=== PATIENT | male | born 1955 | race Caucasian/White ===

== ENCOUNTER 2016-06-24 22:42 | Emergency (ER) | payer OTHER ==
[~2016-06-24] VITALS: Ht 177.8 cm; Wt 80.7 kg
--- NOTE | ~2016-06-24 | EKG ---
[place], [place] ELECTROCARDIOGRAM REPORT NAME: HENRY OROPEZA UNIT #: [id number] ROOM: DOCTOR: GRISELDA MARIE MD BIRTHDATE: [birth year] DOS: 06/24/2016 TIME: 2359. FINDINGS: Sinus rhythm with rate of 82. Frequent premature atrial contractions noted. Compared to previous tracings this date, inferior ST elevation and lateral ST segment depression are much less remarkable. Abnormal electrocardiogram. GRISELDA MARIE MD CM:EKGRPT:ELECTROCARDIOGRAM REPORT [id number] GRISELDA MARIE MD
--- NOTE | ~2016-06-24 | EKG ---
[place], [place] ELECTROCARDIOGRAM REPORT [facility]: [id number] UNIT #: [id number] ROOM: DOCTOR: GRISELDA MARIE MD BIRTHDATE: [birth year] DOS: 06/24/2016 TIME: 2317. FINDINGS: Normal sinus rhythm at rate 91. Acute ST elevation in lead 3 and aVF suggests acute inferior ST elevation myocardial infarction, lateral ST segment depression consistent with ischemia as well. Abnormal electrocardiogram. GRISELDA MARIE MD CM:EKGRPT:ELECTROCARDIOGRAM REPORT [id number] GRISELDA MARIE MD
--- NOTE | ~2016-06-24 | EKG ---
[place], [place] ELECTROCARDIOGRAM REPORT [id number] UNIT #: [id number] ROOM: DOCTOR: GRISELDA MARIE MD BIRTHDATE: [birth year] DOS: 06/24/2016 TIME: 2250. FINDINGS: Normal sinus rhythm at rate of 79. ST elevation in 2, 3 and aVF consistent with acute inferior ST elevation VT. Lateral ST segment depression consistent with ischemia. Abnormal electrocardiogram. GRISELDA MARIE MD CM:EKGRPT:ELECTROCARDIOGRAM REPORT [id number] [id number] GRISELDA MARIE MD
[2016-06-24 23:10] LABS: BASO % 0.4 % (0.0-1.0); EOS # 0.3 10*3/uL (0.0-0.4); EOS % 3.7 % (1.0-4.0); HEMATOCRIT 41.9 % (42.0-52.0); HEMOGLOBIN 14.3 g/dl (14.0-18.0); LYMPH % 28.4 % (27.0-41.0); MEAN CELL VOLUME 92.9 fl (80.0-94.0); MEAN CORPUSCULAR HGB 31.7 pg (27.0-31.0); MEAN CORPUSCULAR HGB CONC 34.1 g/dl (33.0-37.0); MEAN PLATELET VOLUME 9.2 fl (9.6-12.3); MONO # 0.6 10*3/uL (0.1-1.0); MONO % 7.9 % (3.0-9.0); NEUT # 4.2 10*3/uL (2.3-7.9); NEUT % 59.3 % (47.0-73.0); PLATELET COUNT AUTOMATED 238 10*3/uL (130-400); RED BLOOD COUNT 4.51 10*6/uL (4.50-5.90); RED CELL DISTRI WIDTH 14.5 % (0-14.5)
[2016-06-24 23:22] LABS: INTERNATIONAL NORM RATIO 0.9 (2.0-3.5); PROTHROMBIN TIME 9.7 SECONDS (9.0-12.4)
[2016-06-24 23:28] LABS: ALBUMIN 3.3 gm/dl (3.1-4.5); ALKALINE PHOSPHATASE 88 U/L (45-117); BILIRUBIN, TOTAL 0.2 mg/dl (0.2-1.0); BUN 13 mg/dl (7-24); CARBON DIOXIDE 29 mmol/L (21-32); CHLORIDE 105 mmol/L (98-107); EST GLOM FILT AFRICAN AMERICAN > 60 ml/min; GLUCOSE 100 mg/dL (65-99); MAGNESIUM 2.1 mg/dL (1.5-2.1); POTASSIUM 3.6 mmol/L (3.5-5.1); SGOT/AST 57 IU/L (3-35); SGPT/ALT 54 U/L (12-78); SODIUM 139 mmol/L (136-145); TOTAL PROTEIN 6.2 gm/dL (6.4-8.2)
[2016-06-24 23:29] LABS: TROPONIN I 0.028 ng/ml (<0.045)
== END 2016-06-25 01:24 | disposition short-term general hospital (02) ==
LOC: ED 22:42
PROVIDERS: Emergency Medicine Emergency Medical Services
DX: I24.9 Acute ischemic heart disease, unspecified (principal)

== ENCOUNTER → 2016-07-29 | Outpatient (CLI) | payer OTHER | END | disposition home or self-care (01) | LOC: CARD 15:36 | DX: I25.10 Atherosclerotic heart disease of native coronary artery without angina pectoris (principal); I21.4 Non-ST elevation (NSTEMI) myocardial infarction ==

== ENCOUNTER 2017-04-03 09:26 | Inpatient (IN) | payer OTHER ==
[2017-04-03] VITALS (11 sets, daily range): BP systolic 97–124; BP diastolic 64–81
[~2017-04-03] VITALS: Ht 178 cm; Wt 77.0 kg
--- NOTE | ~2017-04-03 | O ---
[place], [place] OPERATIVE NOTE NAME: HENRY OROPEZA [facility] #: [id number] UNIT #: [id number] ROOM: [facility] DOCTOR: MANUEL AMADOR MDKANDIANTHONY BIRTHDATE: [birth year] DOS: 04/03/2017 INDICATIONS: The patient has presented with melanotic stool to the Emergency Room. The patient on aspirin and Plavix for coronary artery disease, 3 stents last June. His H and H 9 and 28 with platelet 222. His lactic acid was normal. His comprehensive metabolic panel, GFR greater than 60, bilirubin 0.1. No other pathology. PROCEDURE: Today's procedure part of investigation is panendoscopy plus biopsy and photographic series. PREMEDICATION: Versed and Diprivan. SCOPE: Olympus forward-viewing gastroscope Q10 video. REPORT: After putting the patient in left lateral position and application of lubricant to the scope, the scope was introduced. Thereafter, under direct visualization, advanced through the length of esophagus without difficulty into gastric pouch. A 3 cm hiatal hernia was noticed. Gastric pouch was entered. Diffuse gastric erosions from proximal gastric pouch to antrum was noticed. Biopsy obtained. Duodenum was entered. The anterior wall, first and second portion. Multiple duodenal ulcers were identified. None was actively bleeding; however, is scarred. Dominguez red spot in the center of both was noticed superficially in presence. Scope was withdrawn after photographic series to antrum. GI reflection reveals cardia to be benign air suctioned out. The patient was extubated, tolerated procedure well. IMPRESSION: Hiatal hernia, gastritis, gastric erosions in the diffuse pattern, multi duodenal ulcers, in the presence of aspirin and Plavix is the cause of upper gastrointestinal bleed. PLAN AND DISCUSSION: We will hold aspirin. We will hold Plavix. We are going to utilize Carafate 2 grams slurry q.i.d. 2 hours before meals and at bedtime. We are going to keep him on Protonix 40 mg IV b.i.d. We are going to keep him on ice cream, milk shake, ice jello today and from tomorrow, we can advance him to a soft diet for the dinner tomorrow and on board. H and H tomorrow morning and clinical reassessment. Etiology of bleed, aspirin and Plavix. [place], [place] OPERATIVE NOTE NAME: HENRY OROPEZA UNIT #: [id number] ROOM: [facility] DOCTOR: MARJORIE MUÑOZ,CARLI BIRTHDATE: [birth year] CARLI AMADOR MD CM:OPRECORD:OPERATIVE NOTE 1648 03 CARLI AMADOR MD 04/03/172002 interface
--- NOTE | ~2017-04-03 | CON ---
[place], [place] REPORT OF CONSULTATION NAME: HENRY OROPEZA [facility] #: [id number] UNIT #: [id number] ROOM: [facility] DOCTOR: CARLI AMADOR MD BIRTHDATE: [birth year] DOS: 04/03/2017 HISTORY OF PRESENT ILLNESS: The patient is a 61-year-old patient who presented with chief complaint of melanotic stool in the Emergency Room. The patient; however, that has been on aspirin and Plavix. No nonsteroidal anti-inflammatory. No alcohol as etiology was determined. His labs and records in the ER was reviewed by Dr. Eduin Wilkins and he called me with the patient's H and H of 9 and 28 and lactic acid, which was normal. INR was 1.0. Comprehensive metabolic panel, GFR greater than 60. Electrolytes balance. Bilirubin 0.1, lipase within normal limits. BNP of 31. Rapid flu was negative. Chest x-ray was unremarkable. PAST MEDICAL HISTORY: Associated with coronary artery disease, systemic hypertension and hyperlipidemia. PAST SURGICAL HISTORY: Left knee prosthesis and cardiac catheterization and coronary artery stents x 3 in 06/2016. FAMILY HISTORY: Noncontributory. ALLERGIES: No known medication. MEDICATIONS: Include aspirin and Effient. REVIEW OF SYSTEMS: HEENT: Denies double vision, blurred vision. RESPIRATORY: Denies shortness of breath. CARDIOVASCULAR: Denies chest pain. DIGESTIVE SYSTEM: Melanotic stool. PHYSICAL EXAMINATION: VITAL SIGNS: Stable. Blood pressure is not compromised, however, pulse is 120. HEENT: Head normocephalic, nontraumatic. Eyes: Pupils round and reactive. Mouth and buccal mucosa benign. NECK: Supple, no thyromegaly, no cervical lymphadenopathy. CHEST: Symmetric anatomy, equal expansion. No wheeze, no rhonchi. HEART: Tachycardic at about 100+, otherwise no gallop, no murmur. ABDOMEN: Soft. No hepato-organomegaly. Bowel sounds present. No pulsatile mass. EXTREMITIES: No cyanosis, no pedal edema. NEUROLOGICAL: Alert, oriented to time, place, person. LABORATORY AND DIAGNOSTIC DATA: Chemistry reviewed. Labs reviewed. H and H identified. X-rays reviewed. PLAN AND DISCUSSION IMPRESSION: Upper gastrointestinal bleed secondary to aspirin and Effient, which is used for his relatively new cardiac stents. Otherwise, systemic hypertension, otherwise, hyperlipidemia. PLAN AND DISCUSSION: Transfusion and stabilization, Endoscopic assessment and [place], [place] REPORT OF CONSULTATION NAME: HENRY OROPEZA UNIT #: [id number] ROOM: [facility] DOCTOR: CARLI AMADOR MD BIRTHDATE: [birth year] clinical reevaluate. CARLI AMADOR MD CM:CONSTR:REPORT OF CONSULTATION 1648 04/03/17 2007 interface
[2017-04-03 10:13] LABS: BASO % 0.1 % (0.0-1.0); EOS % 0.1 % (1.0-4.0); HEMATOCRIT 28.5 % (42.0-52.0); HEMOGLOBIN 9.8 g/dl (14.0-18.0); LYMPH # 1.3 10*3/uL (1.3-4.4); LYMPH % 16.9 % (27.0-41.0); MEAN CELL VOLUME 93.8 fl (80.0-94.0); MEAN CORPUSCULAR HGB 32.2 pg (27.0-31.0); MEAN CORPUSCULAR HGB CONC 34.4 g/dl (33.0-37.0); MEAN PLATELET VOLUME 9.8 fl (9.6-12.3); MONO # 0.3 10*3/uL (0.1-1.0); MONO % 3.5 % (3.0-9.0); NEUT # 5.9 10*3/uL (2.3-7.9); NEUT % 79.1 % (47.0-73.0); PLATELET COUNT AUTOMATED 222 10*3/uL (130-400); RED BLOOD COUNT 3.04 10*6/uL (4.50-5.90); RED CELL DISTRI WIDTH 13.3 % (0-14.5); WHITE BLOOD COUNT 7.4 10*3/uL (4.8-10.8)
[2017-04-03 10:24] LABS: ACT PARTIAL THROMBO TIME 23.5 SECONDS (20.8-31.5)
[2017-04-03 10:32] LABS: ALBUMIN 2.7 gm/dl (3.1-4.5); BUN 52 mg/dl (7-24); CHLORIDE 109 mmol/L (98-107); CREATININE 0.82 mg/dL (0.70-1.30); LIPASE 244 U/L (73-393); POTASSIUM 4.7 mmol/L (3.5-5.1); SGOT/AST 15 IU/L (3-35); SGPT/ALT 24 U/L (12-78); SODIUM 140 mmol/L (136-145); TOTAL PROTEIN 5.6 gm/dL (6.4-8.2)
[2017-04-03 10:33] LABS: ALKALINE PHOSPHATASE 59 U/L (45-117); TROPONIN I 0.024 ng/ml (<0.045)
[2017-04-03 12:08] LABS: BILIRUBIN NEGATIVE (NEGATIVE); BLOOD NEGATIVE (NEGATIVE); CLARITY CLEAR (CLEAR); COLOR YELLOW (YELLOW); GLUCOSE NEGATIVE (NEGATIVE); KETONE TRACE (NEGATIVE); LEUKO ESTERASE NEGATIVE (NEGATIVE); NITRITE NEGATIVE (NEGATIVE); PH 5.5 (5.0-9.0); UROBILINOGEN 0.2 E.U./dl (0.2-1.0)
[2017-04-03 12:14] LABS: MUCOUS 1+
[2017-04-03] MEDS ORDERED: EFFIENT10 M1 PO (14:06)
[2017-04-03] MEDS ORDERED: METOPROLOL25 MG PO (14:06)
[2017-04-03] MEDS ORDERED: ASPIRIN CHILDRE81 MG PO (14:07)
[2017-04-03] MEDS ORDERED: LIPITOR40 MG PO (14:07)
[2017-04-03] MEDS ORDERED: NITROSTAT0.4 MG SL (14:07)
[2017-04-04] VITALS (11 sets, daily range): BP systolic 12–112; BP diastolic 59–68
[2017-04-04 05:44] LABS: ALBUMIN 2.5 gm/dl (3.1-4.5); ALKALINE PHOSPHATASE 40 U/L (45-117); CHLORIDE 112 mmol/L (98-107); CHOLESTEROL 90 mg/dL (<200); CREATININE 0.76 mg/dL (0.70-1.30); FREE T4 1.11 ng/dl (0.76-1.46); HDL CHOLESTEROL 27 mg/dl (40-60); LDL CHOLESTEROL 25 mg/dL (9-159); PHOSPHOROUS 2.5 mg/dL (2.5-4.9); POTASSIUM 3.8 mmol/L (3.5-5.1); SGOT/AST 13 IU/L (3-35); SGPT/ALT 20 U/L (12-78); SODIUM 144 mmol/L (136-145); TOTAL PROTEIN 4.7 gm/dL (6.4-8.2); TRIGLYCERIDES 191 mg/dl (<150); VLDL CHOLESTEROL 38 mg/dL (6-40)
[2017-04-04 05:52] LABS: BUN 26 mg/dl (7-24)
[2017-04-04 06:14] LABS: BASO % 0.2 % (0.0-1.0); EOS # 0.1 10*3/uL (0.0-0.4); EOS % 1.3 % (1.0-4.0); LYMPH # 1.8 10*3/uL (1.3-4.4); LYMPH % 32.6 % (27.0-41.0); MEAN CORPUSCULAR HGB 30.9 pg (27.0-31.0); MEAN CORPUSCULAR HGB CONC 34.1 g/dl (33.0-37.0); MEAN PLATELET VOLUME 10.3 fl (9.6-12.3); MONO # 0.4 10*3/uL (0.1-1.0); MONO % 6.3 % (3.0-9.0); NEUT # 3.3 10*3/uL (2.3-7.9); NEUT % 58.9 % (47.0-73.0); PLATELET COUNT AUTOMATED 235 10*3/uL (130-400); RED BLOOD COUNT 2.46 10*6/uL (4.50-5.90); RED CELL DISTRI WIDTH 15.1 % (0-14.5); WHITE BLOOD COUNT 5.6 10*3/uL (4.8-10.8)
[2017-04-04 06:22] LABS: HEMATOCRIT 22.3 % (42.0-52.0); HEMOGLOBIN 7.6 g/dl (14.0-18.0); MEAN CELL VOLUME 90.7 fl (80.0-94.0)
[2017-04-04 07:57] LABS: VITAMIN D, 25-HYDROXY 10.6 ng/mL (30-100)
[2017-04-04 17:04] LABS: HEMATOCRIT 24.1 % (42.0-52.0); HEMOGLOBIN 8.2 g/dl (14.0-18.0)
[2017-04-05] VITALS (12 sets, daily range): BP systolic 91–109; BP diastolic 55–75
[2017-04-05 05:53] LABS: BASO % 0.5 % (0.0-1.0); EOS # 0.1 10*3/uL (0.0-0.4); EOS % 2.3 % (1.0-4.0); HEMATOCRIT 22.2 % (42.0-52.0); HEMOGLOBIN 7.8 g/dl (14.0-18.0); LYMPH # 1.5 10*3/uL (1.3-4.4); LYMPH % 27.4 % (27.0-41.0); MEAN CELL VOLUME 90.2 fl (80.0-94.0); MEAN CORPUSCULAR HGB 31.7 pg (27.0-31.0); MEAN CORPUSCULAR HGB CONC 35.1 g/dl (33.0-37.0); MEAN PLATELET VOLUME 9.8 fl (9.6-12.3); MONO # 0.4 10*3/uL (0.1-1.0); MONO % 6.3 % (3.0-9.0); NEUT # 3.5 10*3/uL (2.3-7.9); PLATELET COUNT AUTOMATED 220 10*3/uL (130-400); RED BLOOD COUNT 2.46 10*6/uL (4.50-5.90); RED CELL DISTRI WIDTH 15.1 % (0-14.5); WHITE BLOOD COUNT 5.6 10*3/uL (4.8-10.8)
[2017-04-05 05:55] LABS: ALBUMIN 2.4 gm/dl (3.1-4.5); ALKALINE PHOSPHATASE 43 U/L (45-117); CHLORIDE 109 mmol/L (98-107); CREATININE 0.79 mg/dL (0.70-1.30); POTASSIUM 3.9 mmol/L (3.5-5.1); SGOT/AST 18 IU/L (3-35); SGPT/ALT 31 U/L (12-78); SODIUM 142 mmol/L (136-145); TOTAL PROTEIN 5.1 gm/dL (6.4-8.2)
[2017-04-05 06:44] LABS: BUN 13 mg/dl (7-24)
[2017-04-06] VITALS: BP 102/64
[2017-04-06 04:00] VITALS: BP 104/68
[2017-04-06 06:04] LABS: BASO % 0.4 % (0.0-1.0); EOS # 0.2 10*3/uL (0.0-0.4); EOS % 4.5 % (1.0-4.0); HEMOGLOBIN 8.8 g/dl (14.0-18.0); LYMPH # 1.5 10*3/uL (1.3-4.4); LYMPH % 28.8 % (27.0-41.0); MEAN CELL VOLUME 90.9 fl (80.0-94.0); MEAN CORPUSCULAR HGB CONC 35.2 g/dl (33.0-37.0); MEAN PLATELET VOLUME 9.7 fl (9.6-12.3); MONO # 0.4 10*3/uL (0.1-1.0); MONO % 7.8 % (3.0-9.0); NEUT % 58.1 % (47.0-73.0); NUCLEATED RED BLOOD CELL 0.4 % (0.0-0.0); PLATELET COUNT AUTOMATED 249 10*3/uL (130-400); RED BLOOD COUNT 2.75 10*6/uL (4.50-5.90); RED CELL DISTRI WIDTH 14.4 % (0-14.5); WHITE BLOOD COUNT 5.1 10*3/uL (4.8-10.8)
[2017-04-06 06:06] LABS: BUN 8 mg/dl (7-24); CHLORIDE 107 mmol/L (98-107); CREATININE 0.84 mg/dL (0.70-1.30); POTASSIUM 3.9 mmol/L (3.5-5.1); SODIUM 142 mmol/L (136-145)
[2017-04-06 08:00] VITALS: BP 110/68
[2017-04-06] MEDS ORDERED: Vitamin D PO (12:32)
[2017-04-06] MEDS ORDERED: CARAFATE1 G1 PO (12:32)
[2017-04-06] MEDS ORDERED: PROTONIX40 MG PO (12:32)
== END 2017-04-06 13:43 | disposition home or self-care (01) | DRG 377 ==
LOC: ED 09:26 → EDHOLD 12:48 → ICCU 12:48
PROVIDERS: Emergency Medicine; Internal Medicine; Internal Medicine Gastroenterology; Registered Nurse
PROC: 30233N1 Transfusion of Nonautologous Red Blood Cells into Peripheral Vein, Percutaneous Approach (ICD-10-PCS; principal; 2017-04-03)
PROC: 0DB78ZX Excision of Stomach, Pylorus, Via Natural or Artificial Opening Endoscopic, Diagnostic (ICD-10-PCS; principal; 2017-04-03)
DX: K26.4 Chronic or unspecified duodenal ulcer with hemorrhage (principal); E43 Unspecified severe protein-calorie malnutrition; E87.8 Other disorders of electrolyte and fluid balance, not elsewhere classified; D62 Acute posthemorrhagic anemia; K25.4 Chronic or unspecified gastric ulcer with hemorrhage; K29.71 Gastritis, unspecified, with bleeding; E83.51 Hypocalcemia; E78.00 Pure hypercholesterolemia, unspecified; I10 Essential (primary) hypertension; K44.9 Diaphragmatic hernia without obstruction or gangrene; E55.9 Vitamin D deficiency, unspecified; Z96.652 Presence of left artificial knee joint; I25.10 Atherosclerotic heart disease of native coronary artery without angina pectoris; E78.5 Hyperlipidemia, unspecified; T39.015A Adverse effect of aspirin, initial encounter; I25.2 Old myocardial infarction; Z95.5 Presence of coronary angioplasty implant and graft; Z79.899 Other long term (current) drug therapy; Z79.82 Long term (current) use of aspirin; Z82.3 Family history of stroke; Z84.1 Family history of disorders of kidney and ureter; Y92.89 Other specified places as the place of occurrence of the external cause; Z68.24 Body mass index [BMI] 24.0-24.9, adult